=== PATIENT | male | born 2000 | race Caucasian/White ===

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

== ENCOUNTER 2022-01-06 14:53 | Emergency (ER) | payer OTHER ==
[~2022-01-06] VITALS: Ht 177.8 cm; Wt 119.7 kg
[2022-01-06 14:54] VITALS: BP 151/95
--- NOTE | 2022-01-06 15:09 | NUR ---
21/M WALKED IN C/O RASH ALL OVER BODY ONSET 2 DAYS AGO. UNK CAUSE. DENIES SOB OR THROAT TIGHTENING. DENIES TONGUE SWELLING. STATES TAKING EILEEN 2 DAYS AGO WITH RELIEF BUT SYMPTOMS CAME BACK WORSE. AAO4, AMBULATORY. PMH: NONE NKA
[2022-01-06] MEDS ORDERED: HYD1C TP (16:25)
[2022-01-06] MEDS ORDERED: BEN50 PO (16:25)
--- NOTE | 2022-01-06 16:40 | NUR ---
Patient discharged with v/s stable. Written and verbal after care instructions given and explained. Patient alert, oriented and verbalized understanding of instructions. Ambulatory with steady gait. All questions addressed prior to discharge. ID band removed. Patient advised to follow up with PMD. Rx of BENADRYL AND HYDROCORTISONE given. Patient educated on indication of medication including possible reaction and side effects. Opportunity to ask questions provided and answered.
== END 2022-01-06 16:40 | disposition home or self-care (01) ==
LOC: MED 14:53
DX: L50.9 Urticaria, unspecified (principal); Z79.899 Other long term (current) drug therapy
CPT/HCPCS: 99282